=== PATIENT | female | born 1960 | race Caucasian/White ===

== ENCOUNTER 2016-10-03 11:05 | Day surgery (SDC) | payer BC ==
[~2016-10-03] VITALS: Ht 152.4 cm; Wt 71.7 kg
[2016-10-03 13:10] VITALS: Ht 152.4 cm; Wt 71.7 kg
[2016-10-03] MEDS ORDERED: LISINOPRIL (13:15)
[2016-10-03] MEDS ORDERED: ASPIRIN PO (13:15)
[2016-10-03 13:50] VITALS: BP 124/76; PULSE 75; RESP 12
[2016-10-03 14:15] VITALS: BP 103/61; PULSE 76; RESP 18
[2016-10-03] MEDS ORDERED: MIDAZOLAM 1 MG/ML 2 ML INJ ONE ×2 (14:19)
[2016-10-03] MEDS ORDERED: FENTAnyl 50 MCG/ML VIAL ONE (14:19)
--- NOTE | 2016-10-03 14:31 | GILP ---
DATE OF PROCEDURE: NAME OF PROCEDURE: Colonoscopy. SURGEON: Alee Hernández MD PREOPERATIVE DIAGNOSIS: Screening colonoscopy. POSTOPERATIVE DIAGNOSES: 1. Colonoscopy all the way to the cecum. 2. Normal colonoscopic examination. 3. No colon neoplasm was identified. INDICATION FOR THE PROCEDURE: Ms. Leighton Jane is a 56-year-old female patient who was scheduled for screening colonoscopy. The procedure and possible complications are well explained to the patient. The patient understood and consented to the procedure. DESCRIPTION OF PROCEDURE: Under the influence of fentanyl and Versed, the colonoscope was carefully introduced in the rectum and under direct vision, it was advanced all the way to the cecum. FINDINGS: The patient had normal colonoscopic exam. No colon neoplasm was identified. She tolerated the procedure very well and there was no complication from the procedure. At the end of the procedure, she was awake with stable vital signs and she was discharged home to the care of h er family. IMPRESSION: 1. Colonoscopy all the way to the cecum. 2. Normal colonoscopic exam. 3. No colon neoplasm was identified. PLAN: Next screening colonoscopy in 10 years. Dictated By: ALEE VALDERRAMA/DEIDRA Conf#: [id number] DID#: [id number]
[2016-10-03 14:43] VITALS: BP 104/60; PULSE 64; RESP 24
== END 2016-10-03 15:56 | disposition home or self-care (01) ==
LOC: GIL 11:05
PROVIDERS: ATTEND Internal Medicine Gastroenterology
DX: Z12.11 Encounter for screening for malignant neoplasm of colon (principal); I10 Essential (primary) hypertension
CPT/HCPCS: 45378; J2250; J3010